=== PATIENT | male | born 1985 | race Caucasian/White ===

== ENCOUNTER 2016-07-15 11:00 | Emergency (ER) | payer OTHER ==
[~2016-07-15 11:00] MED LIST: PRED50TA PO; RANI150T6 PO
--- NOTE | 2016-07-15 11:24 | PHYS DOC ---
General Chief Complaint: marquita Stated Complaint: marquita Time Seen by MD: 11:22 Source: patient Exam Limitations: no limitations Problems: History of Present Illness Initial Comments Patient is a 31-year-old male who comes to the ED complaining of a MRSA recurrence. Patient states that he noticed a red bump with surrounding rash consistent with his prior MRSA infections. 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 He says he has been advised by his doctors in the past to catch these are related to avoid having to I/D them. He just noticed the lesion today he denies fever chills sweats myalgias and malaise and nausea vomiting. He has drug allergies to sulfonamides and clindamycin states his tetanus is up-to- date. He is here hoping for a prescription for antibiotics refuses the need for pain medications at this time. Onset: this morning Severity: moderate Pain/Injury Location: left thigh Method of Injury: unknown Modifying Factors: improves with other Allergies: Coded Allergies: Sulfa (Sulfonamide Antibiotics) (Verified Allergy, Intermediate, 03/11/16) clindamycin (Verified Allergy, Intermediate, 03/11/16) Past Medical History Medical History: other (ADD, GERD) Surgical History: noncontributory Social History Smoker: other (unknown) Alcohol: other Drugs: other Review of Systems Constitutional: denies fever, denies malaise Respiratory: denies cough, denies shortness of breath Cardiovascular: denies chest pain, denies palpitations Gastrointestinal: denies nausea, denies vomiting Genitourinary: denies dysuria, denies frequency Musculoskeletal: denies back pain, denies joint swelling Skin: see HPI Physical Exam General Appearance: WD/WN, no apparent distress HEENT: normal ENT inspection Neck: full range of motion, supple Cardiovascular/Respiratory: normal peripheral pulses, no respiratory distress Hips: left hip other (left medial thigh there is a 0.5 cm tender macule with 1 cm surrounding halo of erythema. There is mild induration and no fluctuance no subcutaneous fluid collection is palpable. The lesion is warm it's mildly tender there are no skin breaks there is no discharge.) Neurologic/Tendon: normal sensation, normal motor functions, normal tendon functions, responds to pain, no evidence tendon injury Psychiatric: alert, oriented x 3 Skin: normal color, warm/dry (left medial thigh lesion as above) Departure Time of Disposition: 11: Disposition: 01 HOME, SELF-CARE Diagnosis: MRSA recurrance Condition: GOOD Patient Instructions: MRSA Overview Additional Instructions: Warm compresses to the affected area 15-20 minutes 4-6 times daily. [id number] Tylenol and/or ibuprofen as needed. Prescription: Doxycycline 100 mg take this with a meal to avoid nausea and vomiting. Follow-up on Post in 2 weeks for recheck. Return to the ED with new or changing symptoms DESTINEE MAYORGA DO Jul 15, 2016 11:24
[2016-07-15 12:00] VITALS: BP 122/80
== END 2016-07-15 12:00 | disposition home or self-care (01) ==
LOC: ER 11:00
DX: K21.9 Gastro-esophageal reflux disease without esophagitis (principal); Z88.1 Allergy status to other antibiotic agents; Z88.2 Allergy status to sulfonamides
CPT/HCPCS: 99283

== ENCOUNTER 2018-08-20 14:14 | Emergency (ER) | payer OTHER ==
[~2018-08-20] VITALS: Ht 177.8 cm; Wt 95.3 kg
[~2018-08-20 14:14] MED LIST changes: +RANI-376 PO; -RANI150T6 PO
[2018-08-20 14:20] VITALS: BP 131/71
--- NOTE | 2018-08-20 14:32 | PHYS DOC ---
Past History Past Medical History: GERD, MRSA Past Surgical History: Other Alcohol Use: Rarely Drug Use: None Adult General Chief Complaint Chief Complaint: SHOULDER INJURY HPI HPI The patient is a pleasant 33-year-old male who presents for evaluation of a right shoulder injury. He states that he slipped in the shower today and fell to the right shoulder. He is concerned about a rotator cuff injury. He is able to raise the arm above his head and denies any previous injuries to the shoulder. He is alert and oriented 4, calm, and appears to be in no distress at this time. He did not hit his head or lose consciousness and denies any headache, neck pain, chest pain or shortness of breath, abdominal or back pain. He denies any focal weakness or numbness. Review of Systems Review of Systems Constitutional: Denies fever or chills [] Eyes: Denies change in visual acuity, redness, or eye pain [] HENT: Denies nasal congestion or sore throat [] Respiratory: Denies cough or shortness of breath [] Cardiovascular: No additional information not addressed in HPI [] GI: Denies abdominal pain, nausea, vomiting, bloody stools or diarrhea [] : Denies dysuria or hematuria [] Musculoskeletal: Denies back pain, right shoulder injury Integument: Denies rash or skin lesions [] Neurologic: Denies headache, focal weakness or sensory changes [] Endocrine: Denies polyuria or polydipsia [] All other systems were reviewed and found to be within normal limits, except as documented in this note. Current Medications Current Medications Current Medications Medications (Trade) Dose Ordered Sig/[facility] Start Time Stop Time Status Last Admin Dose Admin Acetaminophen (Tylenol) 1,000 mg 1X ONCE 08/20/18 14:50 08/20/18 14:51 Ibuprofen (Motrin) 600 mg 1X ONCE 08/20/18 14:50 08/20/18 14:51 Allergies Allergies Allergies Coded Allergies Type Severity Reaction Last Updated Verified Sulfa (Sulfonamide Antibiotics) Allergy Intermediate 03/11/16 Yes clindamycin Allergy Intermediate 03/11/16 Yes Physical Exam Physical Exam Constitutional: Well developed, well nourished, no acute distress, non-toxic appearance. [] HENT: Normocephalic, atraumatic, bilateral external ears normal, oropharynx moist, no oral exudates, nose normal. [] Eyes: PERRLA, EOMI, conjunctiva normal, no discharge. [] Neck: Normal range of motion, no tenderness, supple, no stridor. [] Cardiovascular:Heart rate regular rhythm, no murmur [] Lungs & Thorax: Bilateral breath sounds clear to auscultation [] Abdomen: Bowel sounds normal, soft, no tenderness, no masses, no pulsatile ma sses. [] Skin: Warm, dry, no erythema, no rash. [] Back: No tenderness, no CVA tenderness. [] Extremities: no cyanosis, no clubbing, ROM intact, no edema, +ttp over right humeral head, resisted biceps/pectoral motion increases discomfort Neurologic: Alert and oriented X 3, normal motor function, normal sensory function, no focal deficits noted. [] Psychologic: Affect normal, judgement normal, mood normal. [] EKG EKG [] Radiology/Procedures Radiology/[place] [address] IMAGING REPORT Signed PATIENT: SAL MARROQUIN ACCOUNT: [id number] : 1985 LOCATION: ER AGE: 33 SEX: M EXAM STATUS: PRE ER ORD. PHYSICIAN: AYESHA GRACE DO REASON: right shoulder pain, slipped and fell in shower this morning PROCEDURE: SHOULDER 2+V RIGHT 3 view study right shoulder Clinical indications: Slipped and fell in shower this morning. Right shoulder pain. FINDINGS: No acute fracture or dislocation or lytic process is evident. No AC joint separation is seen. IMPRESSION: No acute fracture. Electronically signed by: Elinor Nguyen MD (08/20/2018 2:48 PM) [id number] DICTATED AND SIGNED BY: ELINOR NGUYEN MD DATE: 08/20/18 1448 CC: AYESHA GRACE DO; PCP,UNKNOWN ~ Course & Med Decision Making Course & Med Decision Making Patient updated on imaging results which are acutely unremarkable. Patient given a sling for comfort and will be given a prescription for tramadol. Advised patient to follow-up with the physician listed in the next 2-3 days and to return for new or worsening symptoms. Patient understands he may need an MRI to further evaluate the rotator cuff. Dragon Disclaimer Dragon Disclaimer This electronic medical record was generated, in whole or in part, using a voice recognition dictation system. Departure Departure: Impression: Primary Impression: Right shoulder injury Disposition: 01 HOME, SELF-CARE Condition: STABLE Referrals: PCP,UNKNOWN (PCP) [facility] Patient Instructions: Rotator Cuff Injury, Shoulder Pain, Shoulder Sprain Additional Instructions: Use the sling provided. Take the pain medication provided as needed. Return to the ER for new or worsening symptoms. Follow-up with your doctor or the doctor provided in the next 2-3 days. Scripts Tramadol Hcl (TRAMADOL HCL) 50 Mg Tablet 50 MG PO PRN Q6HRS PRN for shoulder pain, #12 TAB Prov: AYESHA GRACE DO 08/20/18 AYESHA GRACE DO Aug 20, 2018 14:32
[2018-08-20] MEDS ORDERED: IBUPROFEN 600 MG TABLET. PO ONE (14:50)
[2018-08-20] MEDS ORDERED: ACETAMINOPHEN 500 MG TABLET PO ONE (14:50)
--- NOTE | 2018-08-20 14:51 | RAD ---
3 view study right shoulder Clinical indications: Slipped and fell in shower this morning. Right shoulder pain. FINDINGS: No acute fracture or dislocation or lytic process is evident. No AC joint separation is seen. IMPRESSION: No acute fracture. Electronically signed by: Saad Nguyen MD (08/20/2018 2:48 PM) [place] [id number]
[2018-08-20] MEDS ORDERED: TRAM50TA PO (14:57)
== END 2018-08-20 15:03 | disposition home or self-care (01) ==
LOC: ER 14:14
DX: S49.91XA Unspecified injury of right shoulder and upper arm, initial encounter (principal); K21.9 Gastro-esophageal reflux disease without esophagitis; Z86.14 Personal history of Methicillin resistant Staphylococcus aureus infection; Z88.2 Allergy status to sulfonamides; Z88.1 Allergy status to other antibiotic agents; W01.0XXA Fall on same level from slipping, tripping and stumbling without subsequent striking against object, initial encounter; Y93.E1 Activity, personal bathing and showering; Y92.89 Other specified places as the place of occurrence of the external cause; Y99.8 Other external cause status
CPT/HCPCS: 73030; 99284

== ENCOUNTER 2019-08-30 17:41 | Emergency (ER) | payer OTHER ==
[~2019-08-30] VITALS: Ht 177.8 cm; Wt 97.8 kg
[~2019-08-30 17:41] MED LIST changes: +TRAM50TA PO
[2019-08-30 17:50] VITALS: BP 121/68
--- NOTE | 2019-08-30 19:02 | PHYS DOC ---
Past History Past Medical History: GERD, MRSA, Other Additional Past Medical Histor: ADHD Past Surgical History: Other Additional Past Surgical Histo: FACIAL TUMOR REMOVAL X 2 Alcohol Use: Rarely Drug Use: None Adult General Chief Complaint Chief Complaint: TOE PROBLEM HPI HPI Patient is a 34-year-old male who presents to the emergency room complaining of left fifth toe pain. He states last night he caught it in the couch cushion and pulled it sideways. He states he has some pain mostly when the toe is moved sideways. He has minimal pain with walking. He does not have any pain at rest. He states that it was changing color some over the last couple of days. He states it is back to normal, alert at this time and denies any swelling. He denies any other injuries. He denies sensation changes. He is able to move his toes without difficulty. Review of Systems Review of Systems General: Denies fever, chills, sweats, fatigue Eyes: Denies drainage, blurred vision, eye redness HENT: Denies rhinorrhea, sore throat, earache Respiratory: Denies cough, shortness of breath, wheezing Cardiac: Denies edema, palpitations, chest pain GI: Denies abdominal pain, Nausea, vomiting MSK: Denies back pain, neck pain Skin: Denies rash, jaundice Neuro: Denies headache, dizziness Psychiatric: Denies SI/HI Allergies Allergies Allergies Coded Allergies Type Severity Reaction Last Updated Verified Sulfa (Sulfonamide Antibiotics) Allergy Intermediate 03/11/16 Yes clindamycin Allergy Intermediate 03/11/16 Yes sulfamethoxazole Allergy Unknown 08/30/19 Yes trimethoprim Allergy Unknown 08/30/19 Yes Physical Exam Physical Exam General: Awake, alert, NAD. Well Nourished, well hydrated. Cooperative HEENT: Atraumatic, EOMI, PERRL, airway patent, moist oral mucosa Neck: Supple, trachea midline Respiratory: CTA bilaterally, normal effort, no wheezing/crackles CV: RRR, no murmur, cap refill <2 GI: Soft, nondistended, nontender, no masses MSK: No obvious deformities. Left fifth toe: No swelling, normal range of motion, normal sensation, minimal tenderness with range of motion Skin: Warm, dry, intact Neuro: A&O x3, speech NL, sensory and motor grossly intact, no focal deficits Psych: Normal affect, normal mood, not suicidal or homicidal Current Patient Data Vital Signs Vital Signs Date Time Temp Pulse Resp B/P (MAP) Pulse Ox O2 Delivery O2 Flow Rate FiO2 08/30/19 17:50 97.7 77 20 121/68 (85) 98 Room Air EKG EKG [] Radiology/Procedures Radiology/Procedures X-ray of toe negative per emergency physician's read Course & Med Decision Making Course & Med Decision Making Pertinent Labs and Imaging studies reviewed. (See chart for details) Patient is 34-year-old male who presents to the emergency room with minimal toe pain after it was pulled with last night. Toe appears normal. Normal range of motion. X-ray is negative per my review. We discussed rice therapy, emma tape, hard sole shoes. Patient's test results and vitals while in the ED were fully reviewed and discussed with the patient. Patient is stable and at this time does not need admission to the hospital. We have discussed strict return precautions and the importance of following up with their Primary Care Physician. Patient stated understanding and was given an opportunity to ask any questions. Patient is in agreement with plan. Dragon Disclaimer Dragon Disclaimer This electronic medical record was generated, in whole or in part, using a voice recognition dictation system. Departure Departure: Impression: Primary Impression: Sprain of toe Disposition: HOME/RESIDENCE PRIOR TO ADM Condition: STABLE Patient Instructions: Emma Taping of Toes, Sprain Justification of Admission: Justification of Admission: Justification of Admission Dx: FARZANEH Uribe MD Aug 30, 2019 19:02
--- NOTE | 2019-08-30 19:53 | RAD ---
Examination: FOOT LEFT 3V History: Reason: BRUISING PAIN LEFT 5TH TOE / Spl. Instructions: / History: Comparison/Correlation: None Findings: Total 3 images of the left foot were obtained. Joint spaces are normal. No fracture or bone destruction. Soft tissues are unremarkable. Impression: Normal left foot 3 view x-ray exam. Electronically signed by: Gamaliel Leal MD (08/30/2019 7:50 PM) [id number]
== END 2019-08-30 18:35 | disposition home or self-care (01) ==
LOC: ER 17:41
DX: S93.505A Unspecified sprain of left lesser toe(s), initial encounter (principal); K21.9 Gastro-esophageal reflux disease without esophagitis; Z88.2 Allergy status to sulfonamides; Z88.1 Allergy status to other antibiotic agents; W23.0XXA Caught, crushed, jammed, or pinched between moving objects, initial encounter; Y93.89 Activity, other specified; Y92.89 Other specified places as the place of occurrence of the external cause; Y99.8 Other external cause status
CPT/HCPCS: 73630; 99283